=== PATIENT | female | born 1945 | race Caucasian/White ===

== ENCOUNTER 2017-05-04 19:23 | Observation (INO) | payer MEDICARE, OTHER ==
[2017-05-04 20:12] LABS: #Eosinphils 0.1 thou/uL (0.0-0.7); #Lymphocytes 1.3 thou/uL (1.20-3.40); #Monocytes 0.7 thou/uL (0.11-0.59); #Neutrophils 2.8 thou/uL (1.40-6.50); %Basophils 0.9 % (0.0-1.0); %Eosinophils 2.9 % (0.0-10.0); %Lymphocytes 26.5 % (21.0-51.0); %Monocytes 13.2 % (0.0-10.0); Hematocrit 39.2 % (36.0-47.0); Mean Platelet Volume 6.1 fL (7.4-10.4); Red Blood Cell (RBC) Count 4.17 mill/uL (4.20-5.40); White Blood Cell (WBC) Count 4.9 thou/uL (4.8-10.8)
[2017-05-04 20:37] LABS: Troponin I Less than 0.010 ng/mL (< 0.028)
[2017-05-04 20:42] LABS: ALT (SGPT) 43 U/L (8-55); AST (SGOT) 47 U/L (5-34); Alkaline Phosphatase 56 U/L (40-150); Anion Gap 17 mmol/L (10-20); BUN (Urea Nitrogen) 13 mg/dL (9.8-20.1); Bilirubin, Total 0.6 mg/dL (0.2-1.2); Calc. Creatinine Clearance 0 mL/min (70-130); Calcium 9.8 mg/dL (7.8-10.44); Carbon Dioxide 22 mmol/L (23-31); Chloride 104 mmol/L (98-107); Estimated GFR-MDRD 73; Globulin 2.6 g/dL (2.4-3.5); Protein, Total 7.1 g/dL (6.0-8.3)
[2017-05-04] MEDS ORDERED: Labetalol HCl 100 MG/20 ML VIAL ONE (20:45)
--- NOTE | 2017-05-04 21:18 | PDOC.EVN ---
Event Note - Event Note Event Note: [id number] h&p dictated 1. Chest pain 2. HTN 3. IDALIA 4. H/O Depression & anxiety see orders
[2017-05-04 22:42] VITALS: BMI 27.8
[2017-05-04] MEDS: Nitroglycerin 2% Ointment 1 INCH/1 GM Packet TOP SCH (22:43)
[2017-05-04] MEDS ORDERED: Lorazepam 0.5 MG TAB PO SCH (23:15)
[2017-05-04 23:25] LABS: Troponin I Less than 0.010 ng/mL (< 0.028)
[2017-05-05] MEDS ORDERED: ADENOSINE 60 MG/20 ML VIAL ONE (00:50)
[2017-05-05] MEDS ORDERED: ISOVUE-370 76%-LOCM 1 ML ONE (01:29)
[2017-05-05 02:41] LABS: Troponin I 0.012 ng/mL (< 0.028)
[2017-05-05] MEDS: Nitroglycerin 2% Ointment 1 INCH/1 GM Packet TOP SCH ×2 (04:02→15:00)
--- NOTE | 2017-05-05 07:13 | HP ---
DATE OF ADMISSION: 05/04/2017 CHIEF COMPLAINT: Chest pain. HISTORY OF PRESENT ILLNESS: The patient is a 72-year-old female with past medical history of hypertension, hyperlipidemia, obstructive sleep apnea, anxiety, and depression. Now came to the ER because of the chest pain. Chest pain started all of sudden, substernal pressure kind of pain. No aggravating factors, no relieving factors radiated from the central chest to the neck and to the epigastric region. Pain initially started on Sunday since that lasted for a few minutes then symptoms persisted on Sunday and lasted for a few minutes, today the pain persisted the whole day associated with some dizziness also. Denies any nausea, denies any vomiting, denies any fever, denies any chills. The patient complaint of jaw pain a couple of weeks back also lasted for a couple of weeks. Denies any cough. Denies sputum production. PAST MEDICAL HISTORY: As per HPI. PAST SURGICAL HISTORY: Cholecystectomy, hysterectomy, carpal tunnel surgery, and bunionectomy. SOCIAL HISTORY: Denies smoking. Occasional alcohol. Denies any drugs. FAMILY HISTORY: Positive for heart problems. MEDICATIONS: Reviewed. REVIEW OF SYSTEMS: CONSTITUTIONAL: Denies any fever. Denies any chills. EYES: Denies any vision problems. EARS: No hearing loss. NECK: Denies any neck pain. CARDIOVASCULAR SYSTEM: Positive for chest pain. RESPIRATORY SYSTEM: Denies dyspnea. Denies cough or denies sputum production. GASTROINTESTINAL SYSTEM: Denies nausea or vomiting. GENITOURINARY: denies dysuria INTEGUMENTARY: Denies any rash. All other review of systems are reviewed and are negative. PHYSICAL EXAMINATION: CONSTITUTIONAL/VITAL SIGNS: At the time of H\T\P performed, blood pressure is 112/80-90, afebrile, respiratory rate 18, and pulse ox 97% on room air. GENERAL: This patient appears comfortable. HEENT: Pupils are equal, round, and reactive. Anterior naris patent. Nose normal. Ears normal. Teeth intact. Tongue is moist. NECK: Supple, no JVD. CARDIOVASCULAR SYSTEM: S1, S2 present. Regular rate and rhythm, no murmurs, no rubs, no gallops. RESPIRATORY SYSTEM: No wheezing, no rhonchi. Breath sounds present bilaterally. GASTROINTESTINAL: Abdomen is soft, nontender, no guarding, no organomegaly, no masses felt. MUSCULOSKELETAL: No edema. moves all joints INTEGUMENTARY: No rashes seen. PSYCHIATRIC: Mood is appropriate at this time. GENITOURINARY: No suprapubic tenderness. LABORATORY DATA: Labs done in the outside ER show positive, troponin was less than 0.010. White count 4.8, hemoglobin 12.8, platelet count 271, BUN 17, creatinine 0.8. D-dimer 1.23. IMAGING DATA: EKG, ST depression seen in V4, V5 and T-wave inversions seen in lead 2. ASSESSMENT AND PLAN: The patient is 72-year-old female. 1. Chest pain. The patient has elevated D-dimer per ED physician. Outside CT angio is negative for pulmonary embolism. We will wait for the CTA report. We will go ahead and check cardiac enzymes. We will consult Cardiology to evaluate the patient. We will place patient on telemetry. 2. Hypertension, uncontrolled. We will continue home treatments. We will do p.r.n. hydralazine and clonidine also. 3. History of hyperlipidemia. Continue statin. 4. History of obstructive sleep apnea, monitor respiratory status closely. 5. History of anxiety. P.r.n. anxiolytics. Case was discussed in detail with the patient. The patient is FULL CODE. MTDD
[2017-05-05] MEDS ORDERED: Carvedilol 6.25 MG TAB PO SCH (09:00)
[2017-05-05] MEDS ORDERED: Bupropion 150 MG XL TAB PO SCH (09:00)
[2017-05-05] MEDS ORDERED: Non-Formulary Item 1 EACH (Valsartan/Hydrochlorothiazide [Valsartan-Hctz 320-25 Mg Tab] 1 PO SCH (09:00)
[2017-05-05] MEDS ORDERED: DEXLANSOPRAZOLE 30 MG PO SCH (09:00)
[2017-05-05] MEDS: Clopidogrel Bisulfate 75 MG TAB PO SCH ×2 (09:57→16:11)
[2017-05-05] MEDS: Hydrochlorothiazide 25 MG TAB PO SCH ×2 (09:57→16:11)
[2017-05-05] MEDS: Aspirin 325 MG TAB PO SCH ×2 (09:57→16:10)
[2017-05-05] MEDS: Labetalol HCl 100 MG TAB PO SCH ×2 (09:57→18:28)
[2017-05-05] MEDS: Fenofibrate Nanocrystallized 145 MG TAB PO SCH ×2 (09:57→16:11)
[2017-05-05] MEDS: Valsartan 80 MG TAB PO SCH ×2 (09:58→16:09)
[2017-05-05] MEDS: Meloxicam 15 MG TAB PO SCH ×2 (09:58→16:11)
--- NOTE | 2017-05-05 15:56 | NM ---
HISTORY: Chest pain. History of hypertension, dyslipidemia. MYOCARDIAL PERFUSION AND QUANTITATIVE GATED SPECT STUDY. 05/05/17 DOSE: 27 millicuries of technetium 99m Cardiolite for the stress portion of the exam and 9.4 millicuries f or the resting portion of the exam. The patient was stressed using 37 mg of Adenosine. Images demonstrate no significant evidence of reversible defects seen on the stress and resting imag es. No evidence of myocardial ischemia or scar seen. No definite evidence of reversible defects seen . Ejection fraction measures 67%. IMPRESSION: No definite significant evidence of myocardial ischemia. POS: BAILEY
[2017-05-05 16:01] VITALS: TEMP 98.3
--- NOTE | 2017-05-05 17:32 | CT ---
CTA OF THE THORAX WITH IV CONTRAST PE PROTOCOL AND ED REFORMAT IMAGING 05/05/17 INDICATION: Chest pain with history of hypertension and dyslipidemia. FINDINGS: No central or segmental pulmonary embolus is evident. There are moderate calcifications involving the coronary arteries and thoracic aorta. No enlarged lymph nodes are evident. There is some areas of subsegmental volume loss within the right lung base which are nonspecific. No air space consolidation, pleural effusion or pneumothorax is evident. There is a small cyst within the medial left hepatic lobe measuring 1 cm. The gallbladder is surgica lly absent. There is a 2 cm cyst involving the superior pole of the left kidney. No acute osseous abnormality is evident. IMPRESSION: 1. No central or segmental pulmonary embolus. 2. Left hepatic lobe cyst and left renal cyst. POS: BAILEY
--- NOTE | 2017-05-05 17:52 | CON ---
DATE OF CONSULTATION: 05/05/2017 REASON FOR CONSULTATION: Chest pain. HISTORY OF PRESENT ILLNESS: Ms. Faria is a pleasant 72-year-old white female who comes to the hosp [facility] for chest pain. She states that it all started 4 days ago. She was just sitting and felt a li ttle tightness in the mid sternal area. She felt like somebody was grabbing her from the inside, la st for about an hour and then went away on its own. She never had it until 2 days later where she f elt she was at a bible study, just sitting down and felt the same sensation. She decided to come in for evaluation. She has not had any chest pain since. She was admitted, ruled out and Cardiology is being consulted for this. PAST MEDICAL HISTORY: 1. Hypertension. 2. Hyperlipidemia. 3. Sleep apnea. 4. Anxiety and depression. She had a negative heart catheterization in 1979 after she had a panic attack. This is nothing like she was feeling the past week. PAST SURGICAL HISTORY: 1. Cholecystectomy. 2. Hysterectomy. 3. Carpal tunnel surgery. 4. Bunionectomy. SOCIAL HISTORY: No alcohol, tobacco, or drugs. She does drink alcohol occasionally. FAMILY HISTORY: Early coronary artery disease in father. OUTPATIENT MEDICATIONS: 1. Bupropion 150 mg p.o. b.i.d. 2. Plavix 75 mg a day. 3. Amlodipine 5 mg q.a.m. 4. Valsartan and hydrochlorothiazide 320/25 a day. 5. Mobic. 6. Labetalol 200 mg p.o. b.i.d. 7. Lorazepam p.r.n. 8. TriCor 145 mg q.a.m. 9. Famciclovir. 10. Doxycycline. 11. Dexilant 30 mg q.a.m. ALLERGIES: SULFA DRUGS. REVIEW OF SYSTEMS: A twelve-point review of systems was done, it is all negative unless stated in t he history of present illness. PHYSICAL EXAMINATION: VITAL SIGNS: Temperature 98.6, pulse 55, respiration rate 18, satting 99% on room, blood pressure 1 55/70. GENERAL: Awake, alert, oriented x3, in no distress. HEENT: Normocephalic, atraumatic. NECK: Supple. LUNGS: Clear. CARDIOVASCULAR: S1, S2. No S3 or S4. No murmurs or rubs. ABDOMEN: Soft, positive bowel sounds. EXTREMITIES: No edema. SKIN: Warm and dry. LABORATORY WORK: Reviewed. CBC is unremarkable. Chemistry is unremarkable. Troponin is negative x3. Triglycerides of 136, total cholesterol of 170, LDL of 101, HDL 42. IMAGING: EKG was reviewed, normal sinus rhythm with no ischemic changes. ASSESSMENT AND PLAN: Chest pain: Atypical for angina. We will further risk stratify with nuclear stress test. Pending on these results, we will decide on, she may be discharged home if her stress test is normal. Otherwise, we will decide on further risk stratification if there is any suggestion of ischemia. Thank you for letting us to participate in the care of your patient. Once the patient is discharged if the stress test is normal, she will follow up with us in 2-4 weeks.
--- NOTE | 2017-05-05 18:21 | DIS ---
DATE OF ADMISSION: 05/04/2017 DATE OF DISCHARGE: 05/05/2017 PRIMARY CARE PHYSICIAN: Hira Alford M.D. DISCHARGE DIAGNOSIS: Chest pain, resolved. CONDITION OF PATIENT AT THE TIME OF DISCHARGE: Stable. I assessed Ms. Faria on the day of dischar . She denies any chest pain or shortness of breath. Vital signs are stable. S1 and S2 are heard , regular. Lungs are clear to auscultation bilaterally. DISCHARGE MEDICATIONS: Amlodipine 5 mg daily, bupropion XL 150 mg 2 times a day, Plavix 75 mg daily , Dexilant 30 mg daily, doxycycline 40 mg daily, famciclovir 500 mg daily, TriCor 145 mg daily, valerie zepam 0.5 mg at bedtime as needed, labetalol 200 mg 2 times a day, meloxicam 15 mg daily, and valsar hitchcock/hydrochlorothiazide 320/25 mg daily. HOSPITAL COURSE: Ms. Faria is a pleasant 72-year-old lady, who was admitted at [facility] on 05/05/2017 for chest pain. She had a 2D echocardiogram, which showed ejection fra ction estimated at 60% to 65%, grade I/III diastolic dysfunction, mild LVH, moderate mitral regurgit ation, mild aortic regurgitation, mild tricuspid regurgitation, and mitral annular calcification. S he also had a nuclear stress test, which did not reveal any significant evidence of myocardial ische ashlee. She had an elevated D-dimer. She underwent CT angiogram of the chest, which did not reveal an y central or segmental pulmonary embolus. She has a left hepatic lobe cyst and left renal cyst. During this admission, she had a creatinine of 0.78, normal troponins, triglycerides 136, cholestero l 170, LDL cholesterol 101, and HDL cholesterol 42. White count was 4,900, hemoglobin 13.3, and maikel telet count 299,000. Many thanks for allowing me to participate in your patient's care. Please feel free to contact me w ith any questions or concerns. She is advised to follow up with her primary care physician's office in 3-5 days. DISCHARGE DESTINATION: Home.
[2017-05-05 20:25] VITALS: BP 152/76
[2017-05-05] MEDS ORDERED: Lorazepam 0.5 MG TAB PO SCH (21:00)
--- NOTE | 2017-05-11 13:45 | STRESS ---
Acquisition Time: 2017-05-05 11:41:33 Total Exercise Time: 00:04:00 Test Indications: CHEST PAIN Medications: Protocol: ADENOSINE Max HR: 089 BPM 59% of Pred: 150 BPM Max BP: 176/082 mmHG Max Work Load: 1.0 METS RESTING ECG: NORMAL SINUS RHYTHM AT 61 BPM SYMPTOMS: CHEST PAIN, SHORTNESS OF BREATH NORMAL BP RESPONSE ECTOPY: NONE ECG STRESS: 1MM DOWNSLOPING ST DEPRESSION INTERPRETATION: INDETERMINATE ECG/AWAIT NUCLEAR IMAGES FOR DEFINITIVE DIAGNOSIS Confirmed by AJ BOX M.D. ([id number]) on 05/11/2017 1:44:57 PM Referred By: MD Owen HERRON Confirmed By:AJ BOX M.D.
== END 2017-05-05 20:36 | disposition home or self-care (01) ==
LOC: ERS 19:23 → 2SW 20:35
PROVIDERS: ADMIT Internal Medicine; ATTEND Internal Medicine
DX: R07.89 Other chest pain (principal); I10 Essential (primary) hypertension; E78.5 Hyperlipidemia, unspecified; G47.33 Obstructive sleep apnea (adult) (pediatric); F41.9 Anxiety disorder, unspecified; F32.9 Major depressive disorder, single episode, unspecified; Z88.2 Allergy status to sulfonamides; Z79.899 Other long term (current) drug therapy; Z90.49 Acquired absence of other specified parts of digestive tract; Z90.710 Acquired absence of both cervix and uterus; Z98.890 Other specified postprocedural states; Z87.891 Personal history of nicotine dependence
CPT/HCPCS: 71275; 78452; 80053; 80061; 82553; 84484 ×3; 85025; 85379; 93005; 93017; 93306; 94760; 96374; 99285; A9500; G0378; 36415; J0153

== ENCOUNTER 2017-08-29 06:02 | Inpatient (IN) | payer MEDICARE, OTHER ==
[2017-08-29] MEDS ORDERED: CEFAZOLIN/Water 2 GM/20 ML SYRINGE ONE (06:23)
[2017-08-29] MEDS ORDERED: Heparin 10,000 UNITS/1 ML VIAL 30,000 UNITS in Sodium Chloride 0.9% 1,000 ML FS SCH (06:45)
[2017-08-29 06:51] LABS: #Basophils 0.1 thou/uL (0.0-0.2); #Eosinphils 0.3 thou/uL (0.0-0.7); #Lymphocytes 1.5 thou/uL (1.20-3.40); #Monocytes 0.6 thou/uL (0.11-0.59); #Neutrophils 2.5 thou/uL (1.40-6.50); %Basophils 1.3 % (0.0-1.0); %Eosinophils 5.9 % (0.0-10.0); %Lymphocytes 30.6 % (21.0-51.0); %Monocytes 12.7 % (0.0-10.0); %Neutrophils 49.5 % (42.0-75.0); Hemoglobin 12.4 g/dL (12.0-16.0); Mean Corpuscular HGB CONC 33.8 g/dL (32.0-36.0); Mean Corpuscular Hemoglobin 30.8 pg (27.0-31.0); Mean Platelet Volume 6.5 fL (7.4-10.4); Platelet Count 249 thou/uL (130-400); RBC Distribution Width 12.1 % (11.5-14.5); Red Blood Cell (RBC) Count 4.02 mill/uL (4.20-5.40)
[2017-08-29] MEDS ORDERED: Fentanyl 100 MCG/2 ML VIAL ONE (06:51)
[2017-08-29] MEDS ORDERED: Midazolam HCl 5 mg/5 ml Vial ONE (06:51)
[2017-08-29] MEDS ORDERED: Vecuronium 10 MG VIAL ONE ×2 (06:52→15:03)
[2017-08-29] MEDS ORDERED: Dexmedetomidine 200 MCG/2 ML VIAL ONE (06:52)
[2017-08-29] MEDS ORDERED: Midazolam HCl 2 mg/2 ml Vial ONE ×2 (07:00)
[2017-08-29 07:07] LABS: Anion Gap 14 mmol/L (10-20); BUN (Urea Nitrogen) 19 mg/dL (9.8-20.1); Calc. Creatinine Clearance 58 mL/min (70-130); Calcium 10.1 mg/dL (7.8-10.44); Carbon Dioxide 25 mmol/L (23-31); Chloride 103 mmol/L (98-107); Estimated GFR-MDRD 55; Glucose 120 mg/dL (80-115); Potassium 3.9 mmol/L (3.5-5.1); Sodium 138 mmol/L (136-145)
[2017-08-29] MEDS ORDERED: Albumin 5% 500 ML ONE (08:26)
[2017-08-29] MEDS ORDERED: Insulin Regular 300 UNITS/3 ML VIAL ONE (10:24)
[2017-08-29] MEDS ORDERED: Norepinephrine 8 MG/0.9% NS 250 ML IVPB PRN (11:10)
[2017-08-29] MEDS ORDERED: Post-Op Insulin Drip Protocol IVPB ONE (11:10)
[2017-08-29] MEDS ORDERED: Bisacodyl 5 MG TAB PO PRN (11:10)
[2017-08-29] MEDS ORDERED: Fentanyl 100 MCG/2 ML VIAL SLOW IVP PRN (11:10)
[2017-08-29] MEDS ORDERED: DOPamine 400 MG/D5W 250 ML 250 ML IVPB PRN (11:10)
[2017-08-29] MEDS ORDERED: Bisacodyl 10 MG SUPP PR PRN (11:10)
[2017-08-29] MEDS ORDERED: Mag-Al 1200 mg/1200 mg/30 ML UDCUP PO PRN (11:10)
[2017-08-29] MEDS ORDERED: Morphine 4 MG/ML VIAL SLOW IVP PRN (11:10)
[2017-08-29] MEDS ORDERED: hydrALAZINE 20 MG/ML VIAL SLOW IVP PRN (11:10)
[2017-08-29] MEDS ORDERED: HYDROcodone/Acetaminophen 5/325 mg Tablet PO PRN (11:10)
[2017-08-29] MEDS ORDERED: Guaifenesin DM 100-10/5 ML UDCUP PO PRN (11:10)
[2017-08-29] MEDS ORDERED: Promethazine HCl 25 MG/ML VIAL IM PRN (11:10)
[2017-08-29] MEDS ORDERED: Nitroglycerin 50 MG/250 ML BOT 250 ML IVPB PRN (11:10)
[2017-08-29] MEDS ORDERED: Phenylephrine 10 MG/NS 250 ML 250 ML IVPB PRN (11:10)
[2017-08-29] MEDS ORDERED: Acetaminophen 325 MG TAB PO PRN (11:10)
[2017-08-29] MEDS ORDERED: Hetastarch 6% 500 ML 500 ML IVPB PRN (11:10)
[2017-08-29] MEDS ORDERED: Dextrose 5% in Water 1,000 ML IV PRN (11:34)
[2017-08-29] MEDS ORDERED: Dextrose 50% Abboject 50 ML SYRINGE SLOW IVP PRN (11:34)
[2017-08-29 11:43] LABS: #Eosinphils 0.2 thou/uL (0.0-0.7); #Lymphocytes 1.4 thou/uL (1.20-3.40); #Monocytes 0.9 thou/uL (0.11-0.59); #Neutrophils 6.5 thou/uL (1.40-6.50); %Basophils 0.4 % (0.0-1.0); %Eosinophils 2.2 % (0.0-10.0); %Monocytes 9.9 % (0.0-10.0); %Neutrophils 72.5 % (42.0-75.0); Mean Corpuscular HGB CONC 35.1 g/dL (32.0-36.0); Mean Corpuscular Hemoglobin 32.3 pg (27.0-31.0); Mean Corpuscular Volume 92.2 fl (81.0-99.0); Platelet Count 222 thou/uL (130-400); RBC Distribution Width 12.1 % (11.5-14.5); Red Blood Cell (RBC) Count 3.41 mill/uL (4.20-5.40)
[2017-08-29 11:44] VITALS: BMI 29.5
[2017-08-29 12:03] LABS: INR-International Normal Ratio 1.4; PTT 32.4 SEC (22.9-36.1); Prothrombin Time 17.6 SEC (12.0-14.7)
[2017-08-29 12:07] LABS: Actual Bicarbonate (HCO3a) 21.6 mEq/L (22-26); Base Excess (BEa) -2.6 mEq/L (0 (+/-) 2.5); CO2 Tension 35.4 mmHg (35.0-45.0); Hematocrit-ABG 33.4 % (36.0-47.0); Hemoglobin (Hb) 11.2 g/dL (12.0-16.0); O2 Tension (PaO2) 80.5 mmHg (80.0-100.0)
[2017-08-29 12:08] LABS: Calcium, Ionized 1.1 mmol/L (1.12-1.30); Puncture Site ALINE
[2017-08-29 12:15] LABS: Anion Gap 13 mmol/L (10-20); BUN (Urea Nitrogen) 15 mg/dL (9.8-20.1); Calc. Creatinine Clearance 71 mL/min (70-130); Calcium 8.5 mg/dL (7.8-10.44); Carbon Dioxide 21 mmol/L (23-31); Chloride 110 mmol/L (98-107); Estimated GFR-MDRD 66; Glucose 109 mg/dL (80-115); Potassium 3.5 mmol/L (3.5-5.1); Sodium 140 mmol/L (136-145)
[2017-08-29] MEDS: Fentanyl 100 MCG/2 ML VIAL SLOW IVP PRN ×4 (13:15→19:49)
[2017-08-29] MEDS: CEFAZOLIN/Water 2 GM/20 ML SYRINGE SLOW IVP SCH ×2 (13:16→20:55)
[2017-08-29] MEDS: Sodium Chloride 0.9% 1,000 ML IV SCH ×2 (13:17→20:55)
[2017-08-29] MEDS: Potassium Chloride 20 MEQ/100 ML PREMIX BAG IVPB PRN ×2 (13:24→17:19)
--- NOTE | 2017-08-29 13:34 | OP ---
DATE OF PROCEDURE: 08/29/2017 PREOPERATIVE DIAGNOSIS: Coronary artery disease. PROCEDURES PERFORMED: Coronary bypass graft x3, left internal mammary artery to a 1.5 mm intramyocar dial left anterior descending, saphenous vein, small but good quality to a 2 mm obtuse marginal and a 2 mm diagonal. SURGEON: Facundo Bauman M.D. WATER/WASTEWATER ENGINEER: Cesar Huff M.D. TRANSFUSION: None. PROCEDURE IN DETAIL: After adequate anesthesia had been obtained, the patient was prepped and draped . Dr. Huff did an endovascular vein harvest of the left greater saphenous vein while I performed a median sternotomy. After opening the sternum, the left internal mammary artery that was harvested en tered the left pleura in one area. Following harvesting, the patient was heparinized, the mammary di vided distally and passed posterior to a small remnant of thymus gland. Aorta and right atrium were cannulated. Cardiopulmonary bypass instituted. Following this, a liter of D'Donna cardioplegic solu tion was given after inspection of the distal anastomosis. Following this, the OM and diagonal vein and coronary anastomoses were completed. The LAD was dissected out intramyocardial and the RUFF anas tomosed here. Some venous bleeders in the region of the anastomosis were suture ligated. Following completion of this, the crossclamp was removed, partial occluding clamp placed, and 2 proximal anasto carlos were performed on the aortic root marked with rings. The patient was then weaned from cardiopu lmonary bypass, cannulas were removed, and protamine was given systemically. Mediastinal and left pl eural drain were placed with incisions to the right of the upper abdominal midline incision that had been placed for previous cholecystectomy. Following this, sternum was reapproximated with #7 interru pted wire using vancomycin paste on the sternal edges, platelet-enriched blood, and platelet-poor maikel sma. Subcutaneous tissue and skin were closed in layers and the patient is to be taken to the ICU in guarded condition.
[2017-08-29] MEDS ORDERED: PROPOFOL 200 MG/20 ML VIAL ONE (15:03)
[2017-08-29] MEDS ORDERED: DOPamine 400 MG/10 ML VIAL ONE (15:03)
[2017-08-29] MEDS ORDERED: Papaverine 60 MG/2 ML VIAL ONE (15:03)
[2017-08-29] MEDS ORDERED: Nitroglycerin 50 MG/250 ML BOT ONE (15:03)
[2017-08-29] MEDS ORDERED: Calcium Chloride 1 GM/10 ML Abboject SYRINGE ONE (15:03)
[2017-08-29] MEDS ORDERED: Lidocaine 1% PF 5 ML VIAL ONE (15:03)
[2017-08-29] MEDS ORDERED: Sodium Bicarb 50 MEQ/50 ML Abboject 8.4% SYRINGE ONE (15:03)
[2017-08-29] MEDS ORDERED: Heparin 30,000 units/30 ml VIAL ONE (15:03)
[2017-08-29] MEDS ORDERED: Heparin 5,000 UNITS/ML VIAL ONE (15:03)
[2017-08-29] MEDS ORDERED: Aminocaproic Acid 5 GM/20 ML VIAL ONE (15:03)
[2017-08-29] MEDS ORDERED: Potassium Chloride 60 MEQ/30 ML VIAL ONE (15:03)
[2017-08-29] MEDS ORDERED: Cardioplegic Soln 1,000 ML BAG ONE (15:03)
[2017-08-29] MEDS ORDERED: Magnesium 5 GM/10 ML VIAL ONE (15:03)
[2017-08-29] MEDS ORDERED: Thrombin 5000 UNITS/5 ML VIAL ONE (15:03)
[2017-08-29] MEDS ORDERED: Protamine Sulfate 250 MG/25 ML VIAL ONE (15:03)
[2017-08-29] MEDS ORDERED: Lidocaine 2% PF 100 mg/5 ml Syringe ONE (15:03)
[2017-08-29] MEDS: Insulin Regular 300 UNITS/3 ML VIAL SC PRN ×2 (15:52→19:46)
[2017-08-29 16:08] LABS: Base Excess (BEa) -2.7 mEq/L (0 (+/-) 2.5); CO2 Tension 43.6 mmHg (35.0-45.0); Calcium, Ionized 1.1 mmol/L (1.12-1.30); Hematocrit-ABG 33.4 % (36.0-47.0); Hemoglobin (Hb) 10.5 g/dL (12.0-16.0); Puncture Site ALINE; pH, Arterial 7.34 (7.35-7.45)
--- NOTE | 2017-08-29 16:39 | RAD ---
CHEST ONE VIEW 08/29/17 HISTORY: Post open heart surgery. COMPARISON: None. FINDINGS: Patient intubated. Endotracheal tube tip above the sukhdeep approximately 2 cm. Central venous catheter tip in the right atrium. Patient is leftwardly rotated. Thoracostomy tube on the left is in place. N o significant pneumothorax. Pericardial drains are present. Mild atelectatic changes in the lung base on the left. IMPRESSION: Expected postoperative findings without complication. POS: BAILEY
[2017-08-29 17:02] LABS: Hemoglobin 10.9 g/dL (12.0-16.0)
[2017-08-29 17:11] LABS: Potassium 3.7 mmol/L (3.5-5.1)
[2017-08-29] MEDS: Famotidine/PF 20 mg/2ml Vial SLOW IVP SCH (19:49)
[2017-08-29] MEDS: Ondansetron HCl/PF 4 MG/2 ML Vial IVP PRN (19:49)
[2017-08-29] MEDS: clonazePAM 0.5 MG TAB PO SCH (19:57)
[2017-08-29] MEDS: Bupropion 150 MG SR TAB PO SCH (19:57)
[2017-08-29] MEDS: HYDROcodone/Acetaminophen 5/325 mg Tablet PO PRN (20:52)
[2017-08-30] MEDS: HYDROcodone/Acetaminophen 5/325 mg Tablet PO PRN ×5 (00:14→21:11)
[2017-08-30] MEDS: Insulin Regular 300 UNITS/3 ML VIAL SC PRN ×3 (00:26→09:12)
--- NOTE | 2017-08-30 00:53 | EKG ---
Test Reason : POST CABG Blood Pressure : / mmHG Vent. Rate : 055 BPM Atrial Rate : 055 BPM P-R Int : 186 ms QRS Dur : 096 ms QT Int : 480 ms P-R-T Axes : 014 019 -50 degrees QTc Int : 459 ms Sinus bradycardia T wave abnormality, consider anterior ischemia Abnormal ECG When compared with ECG of 04-MAY-2017 19:28, T wave inversion now evident in Inferior leads T wave inversion now evident in Anterior leads Nonspecific T wave abnormality no longer evident in Lateral leads Confirmed by NAN RUFF, SShayne ([id number]) on 08/30/2017 12:53:21 AM Referred By: PIPER Confirmed By:DR. Mary MONTANA MD
[2017-08-30] MEDS: Fentanyl 100 MCG/2 ML VIAL SLOW IVP PRN ×3 (01:42→10:06)
[2017-08-30 04:29] LABS: #Monocytes 1.1 thou/uL (0.11-0.59); #Neutrophils 7.4 thou/uL (1.40-6.50); %Basophils 0.1 % (0.0-1.0); %Eosinophils 0.3 % (0.0-10.0); %Lymphocytes 10.9 % (21.0-51.0); %Monocytes 11.2 % (0.0-10.0); %Neutrophils 77.6 % (42.0-75.0); Hemoglobin 10.1 g/dL (12.0-16.0); Mean Corpuscular HGB CONC 33.2 g/dL (32.0-36.0); Mean Corpuscular Hemoglobin 30.8 pg (27.0-31.0); Mean Corpuscular Volume 92.7 fl (81.0-99.0); Mean Platelet Volume 6.3 fL (7.4-10.4); Platelet Count 228 thou/uL (130-400); RBC Distribution Width 12.3 % (11.5-14.5); Red Blood Cell (RBC) Count 3.27 mill/uL (4.20-5.40); White Blood Cell (WBC) Count 9.5 thou/uL (4.8-10.8)
[2017-08-30 04:50] LABS: Anion Gap 12 mmol/L (10-20); BUN (Urea Nitrogen) 15 mg/dL (9.8-20.1); Calc. Creatinine Clearance 76 mL/min (70-130); Calcium 7.9 mg/dL (7.8-10.44); Carbon Dioxide 26 mmol/L (23-31); Chloride 106 mmol/L (98-107); Estimated GFR-MDRD 71; Glucose 151 mg/dL (80-115); Potassium 3.7 mmol/L (3.5-5.1); Sodium 140 mmol/L (136-145)
[2017-08-30] MEDS: CEFAZOLIN/Water 2 GM/20 ML SYRINGE SLOW IVP SCH (05:05)
[2017-08-30] MEDS: Ondansetron HCl/PF 4 MG/2 ML Vial IVP PRN (05:30)
[2017-08-30] MEDS: Potassium Chloride 20 MEQ/100 ML PREMIX BAG IVPB PRN (06:01)
[2017-08-30] MEDS: Sodium Chloride 0.9% 1,000 ML IV SCH (07:23)
--- NOTE | 2017-08-30 08:47 | RAD ---
CHEST 1 VIEW PORTABLE: Date: 08/30/17 HISTORY: 72-year-old female status post recent open heart surgery. COMPARISON: 08/29/17. FINDINGS: Endotracheal tube has been removed. Chest tubes and right subclavian catheter remains in place. Recen t postop midline sternotomy with some increased markings in the infrahilar regions and some blunting of the costophrenic angles consistent with typical postoperative change and probably some mild subseg mental atelectasis. No evidence for new confluent process or pneumothorax. IMPRESSION: Stable postoperative changes. Continue short-term follow-up. POS: OFF
[2017-08-30] MEDS ORDERED: Aspirin 325 MG TAB PO SCH (09:00)
[2017-08-30] MEDS ORDERED: Prevnar 13-Val Conj/PF 0.5 ML SYRINGE IM ONE (09:00)
[2017-08-30] MEDS: clonazePAM 0.5 MG TAB PO SCH ×2 (09:09→21:13)
[2017-08-30] MEDS: Fenofibrate Nanocrystallized 145 MG TAB PO SCH (09:09)
[2017-08-30] MEDS: Famotidine/PF 20 mg/2ml Vial SLOW IVP SCH (09:09)
[2017-08-30] MEDS: Bupropion 150 MG SR TAB PO SCH ×2 (09:10→21:13)
[2017-08-30] MEDS: Citalopram 10 MG TAB PO SCH (09:10)
[2017-08-30 10:52] LABS: Actual Bicarbonate (HCO3a) 21.9 mEq/L (22-26); Base Excess (BEa) -2.3 mEq/L (0 (+/-) 2.5); CO2 Tension 35.8 mmHg (35.0-45.0); Hematocrit-ABG 33.5 % (36.0-47.0); Hemoglobin (Hb) 11.3 g/dL (12.0-16.0); O2 Tension (PaO2) 220.4 mmHg (80.0-100.0); pH, Arterial 7.41 (7.35-7.45)
[2017-08-30 10:53] LABS: Analyzer IN Cardio OR; Calcium, Ionized 1.1 mmol/L (1.12-1.30); Puncture Site ALINE
[2017-08-30 10:54] LABS: Actual Bicarbonate (HCO3a) 22.5 mEq/L (22-26); Base Excess (BEa) -1.7 mEq/L (0 (+/-) 2.5); Hematocrit-ABG 33.2 % (36.0-47.0); Hemoglobin (Hb) 11.2 g/dL (12.0-16.0); O2 Tension (PaO2) 298.3 mmHg (80.0-100.0); pH, Arterial 7.41 (7.35-7.45)
[2017-08-30 10:55] LABS: Analyzer IN Cardio OR; Calcium, Ionized 1.1 mmol/L (1.12-1.30); Puncture Site ALINE
[2017-08-30 10:58] LABS: Actual Bicarbonate (HCO3a) 25.7 mEq/L (22-26); Base Excess (BEa) 0.6 mEq/L (0 (+/-) 2.5); CO2 Tension 43.7 mmHg (35.0-45.0); Hematocrit-ABG 21.5 % (36.0-47.0); Hemoglobin (Hb) 7.4 g/dL (12.0-16.0); O2 Tension (PaO2) 386.5 mmHg (80.0-100.0); pH, Arterial 7.39 (7.35-7.45)
[2017-08-30 10:59] LABS: Actual Bicarbonate (HCO3v) 25 mEq/L (22-26); Analyzer IN Cardio OR; Base Excess -0.9 mEq/L (0 (+/- 2.5)); Hematocrit-VBG 20.2 % (35-47); pH (venous) 7.34 (7.35-7.45)
[2017-08-30 10:59] LABS: Analyzer IN Cardio OR; Calcium, Ionized 0.9 mmol/L (1.12-1.30); Puncture Site ALINE
[2017-08-30 11:00] LABS: Actual Bicarbonate (HCO3a) 24.3 mEq/L (22-26); Base Excess (BEa) -0.9 mEq/L (0 (+/-) 2.5); CO2 Tension 42.8 mmHg (35.0-45.0); O2 Tension (PaO2) 307.6 mmHg (80.0-100.0); pH, Arterial 7.37 (7.35-7.45)
[2017-08-30 11:00] LABS: Chloride (ABG LAB) 102 mmol/L (98-106); Hemoglobin (Hb) 6.8 g/dL (11.7-16.1); Potassium - ABG Lab 4.2 mmol/L (3.70-5.30); Sodium 138.1 mmol/L (133-146)
[2017-08-30 11:01] LABS: Analyzer IN Cardio OR; Hematocrit-ABG 21.4 % (36.0-47.0); Hemoglobin (Hb) 6.9 g/dL (12.0-16.0); Puncture Site ALINE
[2017-08-30 11:02] LABS: Actual Bicarbonate (HCO3a) 21.9 mEq/L (22-26); Analyzer IN Cardio OR; Base Excess (BEa) -2.7 mEq/L (0 (+/-) 2.5); CO2 Tension 36.6 mmHg (35.0-45.0); Calcium, Ionized 1.1 mmol/L (1.12-1.30); Hematocrit-ABG 21.3 % (36.0-47.0); Hemoglobin (Hb) 7.2 g/dL (12.0-16.0); O2 Tension (PaO2) 269.1 mmHg (80.0-100.0); Puncture Site ALINE
[2017-08-30] MEDS ORDERED: Bisacodyl 10 MG SUPP PR PRN (12:56)
[2017-08-30] MEDS ORDERED: Bisacodyl 5 MG TAB PO PRN (12:56)
[2017-08-30] MEDS ORDERED: HYDROcodone/Acetaminophen 5/325 mg Tablet PO PRN (12:56)
[2017-08-30] MEDS ORDERED: Guaifenesin DM 100-10/5 ML UDCUP PO PRN (12:56)
[2017-08-30] MEDS ORDERED: Acetaminophen 325 MG TAB PO PRN (12:56)
[2017-08-30] MEDS ORDERED: Nitroglycerin 0.4 MG TAB (25 Tab Bottle) SL PRN (12:56)
[2017-08-30] MEDS ORDERED: Milk Of Magnesia 30 ML UDCUP PO PRN (12:56)
[2017-08-30] MEDS ORDERED: Mineral Oil ENEMA PR PRN (12:56)
[2017-08-30] MEDS ORDERED: Fentanyl 100 MCG/2 ML VIAL SLOW IVP PRN ×2 (12:56)
[2017-08-30] MEDS ORDERED: diphenhydrAMINE 25 MG CAP PO PRN (12:56)
[2017-08-30] MEDS ORDERED: Mag-Al 1200 mg/1200 mg/30 ML UDCUP PO PRN (12:56)
[2017-08-30] MEDS ORDERED: Ondansetron HCl/PF 4 MG/2 ML Vial IVP PRN (12:56)
[2017-08-30] MEDS: Ketorolac Tromethamine 30 MG/ML VIAL IVP SCH ×2 (17:23→23:27)
--- NOTE | 2017-08-30 18:53 | CON ---
DATE OF CONSULTATION: 08/30/2017 REASON FOR CONSULTATION: Status post bypass. PRIMARY EMERGENCY PREPAREDNESS MANAGER: Tan Fernando M.D. HISTORY OF PRESENT ILLNESS: Mrs. Faria is a very pleasant 72-year-old white female, very well known to myself, who comes to the hospital for planned bypass. She was admitted back in April for chest pain. She had a stress that was normal. She continued to have episodes of chest pains, so I took her to the catheterization lab where she was found to have severe left main disease and a small left-sided system, large right coronary artery which was widely patent. She underwent coronary artery bypass grafting x3, performed by Dr. Bauman yesterday. She had a RUFF to the LAD, saphenous vein to an obtuse marginal, and a saphenous vein to a 2 mm diagonal. She did well postoperatively. Actually was extubated rather quickly yesterday and she is already on the floor. She still has chest tubes in place. She has soreness around her site, but her breathing is getting better every day. She feels she is a little better every day. PAST MEDICAL HISTORY: 1. Hypertension. 2. Hyperlipidemia. 3. Sleep apnea. 4. Anxiety depression. 5. CAD as above. PAST SURGICAL HISTORY: 1. Cholecystectomy. 2. Hysterectomy. 3. Carpal tunnel surgery. 4. Bunionectomy. 5. Heart catheterization as above. 6. CABG x3 as above. SOCIAL HISTORY: No alcohol, tobacco or drugs. FAMILY HISTORY: Early coronary disease in father. OUTPATIENT MEDICATIONS: Include, 1. Valsartan/hydrochlorothiazide 320/25 mg a day. 2. Lorazepam p.r.n. 3. Ranitidine. 4. Meloxicam. 5. Fenofibrate 145 mg q.a.m. 6. Labetalol 200 mg p.o. b.i.d. 7. Famciclovir 500 mg p.o. q.a.m. 8. Clonazepam p.r.n. 9. Doxycycline. 10. Dexilant 30 mg q.a.m. 11. Clonidine 0.1 mg p.o. t.i.d. p.r.n. 12. Plavix 75 mg a day. 13. Celexa daily. 14. Bupropion. 15. Amlodipine 10 mg a day. ALLERGIES: SULFA DRUGS AND TRAMADOL. The patient has had adverse reactions to STATIN DRUGS. She has had a lot of myalgias and muscle cramps with SIMVASTATIN , LIPITOR, CRESTOR, AND MORE RECENTLY WITH LIVALO. REVIEW OF SYSTEMS: A 12-point review of systems was done and is all negative unless stated in the history of present illness. PHYSICAL EXAMINATION: VITAL SIGNS: Temperature 98.0, pulse 74, respiration rate 18, satting 92% on 4 liters, blood pressure 135/76. GENERAL: Awake, alert, oriented x3, in no distress. HEENT: Normocephalic, atraumatic. NECK: Supple. LUNGS: Have referred sounds from the chest is most likely. CARDIOVASCULAR: S1, S2. There is a 3 component rub, faint difficult to hear and to differentiate from all the chest tube sounds. ABDOMEN: Soft, positive bowel sounds. EXTREMITIES: 1+ edema bilaterally. SKIN: Warm and dry. LABORATORY WORK: Reviewed. White count of 9.5, hemoglobin 10.1, hematocrit 30 , platelet count 228. Coags were unremarkable. ABG was reviewed. Chemistries were reviewed. Sodium 140, potassium 3.7, BUN 15, creatinine 1.8, GFR 71, calcium 7.9. ASSESSMENT AND PLAN: 1. Coronary artery disease. 2. Status post coronary bypass grafting x3. 3. Hypertension. 4. Anxiety. PLAN: 1. Continue postoperative care. 2. Aspirin for life. She is intolerant to STATINS. She will need to be on Repatha once discharged from the hospital. We will start this as an outpatient. Continue to fenofibrate. 3. We will add ARB, she is already on low-dose beta shelia once her blood pressure allows. 4. We will hold Plavix for now indefinitely. Thank you for letting us to participate in the care of your patient. We will follow. GINGER
[2017-08-30] MEDS ORDERED: Simvastatin 40 MG TAB PO SCH (21:00)
[2017-08-30] MEDS ORDERED: Metoprolol Tartrate 25 MG TAB PO SCH (21:00)
[2017-08-31] MEDS: HYDROcodone/Acetaminophen 5/325 mg Tablet PO PRN ×2 (04:21→20:36)
[2017-08-31] MEDS: Ketorolac Tromethamine 30 MG/ML VIAL IVP SCH ×3 (05:38→18:00)
[2017-08-31] MEDS: Fenofibrate Nanocrystallized 145 MG TAB PO SCH (09:32)
[2017-08-31] MEDS: clonazePAM 0.5 MG TAB PO SCH ×2 (09:32→20:32)
[2017-08-31] MEDS: Aspirin 325 mg Enteric Coated Tablet PO SCH (09:32)
[2017-08-31] MEDS: Potassium Chloride 10 MEQ TAB PO SCH (09:32)
[2017-08-31] MEDS: Bupropion 150 MG SR TAB PO SCH ×2 (09:32→20:32)
[2017-08-31] MEDS: Furosemide 40 MG TAB PO SCH (09:32)
[2017-08-31] MEDS: Citalopram 10 MG TAB PO SCH (09:32)
[2017-08-31] MEDS: Metoprolol Tartrate 25 MG TAB PO SCH ×2 (09:32→20:32)
[2017-08-31] MEDS: Valsartan 80 MG TAB PO SCH (09:33)
--- NOTE | 2017-08-31 18:35 | PDOC.CTH ---
Cardiology Progress Note - Subjective She is doing well. She had her CT taken out today. She has walked around the hallways without issues. Has not had a BM yet. - Objective Vital Signs Temp Pulse Pulse Pulse Resp BP BP 08/31/17 16:29 97.5 F L 74 20 08/31/17 12:57 97.4 F L 68 18 08/31/17 12:17 70 75 145/68 H 140/68 08/31/17 08:45 66 68 148/72 H 160/72 H 08/31/17 08:25 98.2 F 75 20 08/31/17 08:14 98.2 F 75 20 BP Pulse Ox Pulse Ox Pulse Ox 08/31/17 16:29 160/79 H 81 L 08/31/17 12:57 159/74 H 95 08/31/17 12:17 93 L 93 L 08/31/17 08:45 94 L 93 L 08/31/17 08:25 90 L 08/31/17 08:14 90 L Weight 155 lb 14.4 oz 08/30/17 08/31/17 09/01/17 06:59 06:59 06:59 Intake Total 2334 740 1240 Output Total 3420 900 600 Balance -1086 -160 640 - Physical Examination General/Neuro: alert & oriented x3, NAD Neck: no JVD present Lungs: unlabored respirations Heart: RRR Abdomen: NT/ND Extremities: + edema B (1+) - Telemetry Telemetry Rhythm: NSR - Labs Result Diagrams: 08/30/17 03:53 08/30/17 03:53 - Assessment/Plan 1. Multivesel CAD, s.p CABG 2. HTN PLAN: - Aspirin/statin for life - Continue BB, will add ARB as BP is a little high now. - Continue to increase PT as tolerated.
[2017-08-31] MEDS: Amlodipine 5 MG TAB PO SCH (20:32)
[2017-09-01] MEDS: Ketorolac Tromethamine 30 MG/ML VIAL IVP SCH ×4 (00:59→18:35)
[2017-09-01] MEDS: HYDROcodone/Acetaminophen 5/325 mg Tablet PO PRN ×2 (01:45→22:11)
[2017-09-01] MEDS ORDERED: cloNIDine 0.1 MG TAB PO PRN (09:28)
[2017-09-01] MEDS: Amlodipine 5 MG TAB PO SCH ×2 (09:48→20:31)
[2017-09-01] MEDS: Potassium Chloride 10 MEQ TAB PO SCH (09:48)
[2017-09-01] MEDS: Aspirin 325 mg Enteric Coated Tablet PO SCH (09:49)
[2017-09-01] MEDS: Bupropion 150 MG SR TAB PO SCH ×2 (09:49→20:31)
[2017-09-01] MEDS: clonazePAM 0.5 MG TAB PO SCH ×2 (09:49→20:31)
[2017-09-01] MEDS: Furosemide 40 MG TAB PO SCH (09:49)
[2017-09-01] MEDS: Citalopram 10 MG TAB PO SCH (09:49)
[2017-09-01] MEDS: Fenofibrate Nanocrystallized 145 MG TAB PO SCH (09:49)
[2017-09-01] MEDS: Metoprolol Tartrate 25 MG TAB PO SCH ×2 (09:49→20:31)
[2017-09-01] MEDS ORDERED: Valsartan 80 MG TAB PO SCH (10:00)
[2017-09-01] MEDS: Valsartan 80 MG TAB PO SCH ×2 (10:03→20:31)
--- NOTE | 2017-09-01 18:53 | PDOC.CTH ---
Cardiology Progress Note - Subjective She is doing better every day. She had a normal BM today. - Objective Vital Signs Temp Pulse Pulse Pulse Resp BP BP 09/01/17 17:07 98.8 F 77 18 09/01/17 11:55 70 68 145/71 H 137/67 09/01/17 11:16 97.5 F L 73 20 09/01/17 09:05 76 87 145/74 H 173/81 H 09/01/17 08:05 97.3 F L 81 18 09/01/17 08:02 97.3 F L 81 18 BP BP Pulse Ox Pulse Ox Pulse Ox 09/01/17 17:07 174/79 H 92 L 09/01/17 11:55 95 93 L 09/01/17 11:16 166/81 H 94 L 09/01/17 09:05 93 L 93 L 09/01/17 08:05 92 L 09/01/17 08:02 176/81 H 92 L Weight 155 lb 1.6 oz 08/31/17 09/01/17 09/02/17 06:59 06:59 06:59 Intake Total 740 1580 1240 Output Total 900 2200 1100 Balance -160 -620 140 - Physical Examination General/Neuro: alert & oriented x3, NAD Neck: no JVD present Lungs: CTA, unlabored respirations Heart: RRR Abdomen: NT/ND Extremities: + edema B (1+) - Telemetry Telemetry Rhythm: NSR - Labs Result Diagrams: 08/30/17 03:53 08/30/17 03:53 - Assessment/Plan 1. Multivesel CAD, s/p CABG 2. HTN PLAN: - Aspirin/statin for life - Continue BB, agree with up titration of ARB due to BP high. - Continue to increase PT as tolerated.
[2017-09-01] MEDS ORDERED: Sodium Chloride 0.9% 30 ML ONE (20:16)
[2017-09-02] MEDS: Amlodipine 5 MG TAB PO SCH ×2 (09:16→20:22)
[2017-09-02] MEDS: Potassium Chloride 10 MEQ TAB PO SCH (09:16)
[2017-09-02] MEDS: Citalopram 10 MG TAB PO SCH (09:17)
[2017-09-02] MEDS: Aspirin 325 mg Enteric Coated Tablet PO SCH (09:17)
[2017-09-02] MEDS: Bupropion 150 MG SR TAB PO SCH ×2 (09:17→20:22)
[2017-09-02] MEDS: clonazePAM 0.5 MG TAB PO SCH ×2 (09:18→20:22)
[2017-09-02] MEDS: Metoprolol Tartrate 25 MG TAB PO SCH ×2 (09:18→20:23)
[2017-09-02] MEDS: Furosemide 40 MG TAB PO SCH (09:18)
[2017-09-02] MEDS: Fenofibrate Nanocrystallized 145 MG TAB PO SCH (09:18)
[2017-09-02] MEDS: Valsartan 80 MG TAB PO SCH ×2 (09:20→20:22)
--- NOTE | 2017-09-02 18:59 | PDOC.CTH ---
Cardiology Progress Note - Subjective Walking around with PT and with her . Had normal BM. - Objective Vital Signs Temp Pulse Pulse Resp BP BP BP 09/02/17 12:02 75 170/80 H 153/72 H 09/02/17 12:00 98.5 F 74 22 H 153/72 H 09/02/17 08:51 76 161/81 H 178/78 H 09/02/17 08:00 98.5 F 77 20 161/81 H Pulse Ox Pulse Ox Pulse Ox 09/02/17 12:02 97 96 09/02/17 12:00 96 09/02/17 08:51 98 95 09/02/17 08:00 95 Weight 150 lb 12.8 oz 09/01/17 09/02/17 09/03/17 06:59 06:59 06:59 Intake Total 1580 1870 Output Total 2200 3100 Balance -620 -1230 - Physical Examination General/Neuro: alert & oriented x3, NAD Neck: no JVD present Lungs: unlabored respirations, other: (mild crackles. ) Heart: RRR Abdomen: NT/ND Extremities: + edema B (1+) - Telemetry Telemetry Rhythm: NSR - Labs Result Diagrams: 08/30/17 03:53 08/30/17 03:53 - Assessment/Plan 1. Multivesel CAD, s/p CABG 2. HTN PLAN: - Aspirin/statin for life - Continue BB - Will increase valsartan. - Continue to increase PT as tolerated. - Home soon. - Follow up in 1 month.
[2017-09-02] MEDS ORDERED: Sodium Chloride 0.9% 30 ML ONE (19:45)
[2017-09-03] MEDS ORDERED: Sodium Chloride 0.9% 10 ML ONE (08:13)
--- NOTE | 2017-09-03 08:50 | DIS ---
HOSPITAL COURSE: The patient was admitted for elective coronary artery bypass grafting. She underwe nt coronary artery bypass graft x3, RUFF to the LAD and saphenous vein grafts to OM and diagonal. He r postoperative course was uneventful and she will be discharged home on her admitting medicines exce pt for clonidine. She will also receive a 5-day course of Lasix 40 mg daily, potassium 10 mEq daily, and received a prescription for [place]. Discharge and follow up instructions were given.
[2017-09-03] MEDS: Amlodipine 5 MG TAB PO SCH (08:56)
[2017-09-03] MEDS: Potassium Chloride 10 MEQ TAB PO SCH (08:56)
[2017-09-03] MEDS: Aspirin 325 mg Enteric Coated Tablet PO SCH (08:57)
[2017-09-03] MEDS: Furosemide 40 MG TAB PO SCH (08:58)
[2017-09-03] MEDS: Bupropion 150 MG SR TAB PO SCH (08:58)
[2017-09-03] MEDS: Fenofibrate Nanocrystallized 145 MG TAB PO SCH (08:58)
[2017-09-03] MEDS: Citalopram 10 MG TAB PO SCH (08:58)
[2017-09-03] MEDS: Metoprolol Tartrate 25 MG TAB PO SCH (08:58)
[2017-09-03] MEDS: clonazePAM 0.5 MG TAB PO SCH (08:59)
[2017-09-03] MEDS: Valsartan 80 MG TAB PO SCH (08:59)
[2017-09-03 13:39] VITALS: BP 142/79
[2017-09-03 14:32] VITALS: TEMP 98.9
--- NOTE | 2017-09-03 15:16 | PDOC.CTH ---
Cardiology Progress Note - Subjective She is doing we. No new issues. Continues to do well with PT. - Objective Vital Signs Temp Pulse Pulse Pulse Resp BP BP 09/03/17 13:03 85 85 142/79 H 09/03/17 08:56 82 165/80 H 09/03/17 08:36 83 86 183/93 H 09/03/17 08:00 98.9 F 82 19 09/03/17 03:49 82 20 09/03/17 03:40 98.8 F 82 16 BP BP Pulse Ox Pulse Ox Pulse Ox 09/03/17 13:03 144/78 H 98 96 09/03/17 08:56 09/03/17 08:36 182/92 H 98 96 09/03/17 08:00 96 09/03/17 03:49 168/86 H 09/03/17 03:40 93 L Weight 142 lb 1.6 oz 09/02/17 09/03/17 09/04/17 06:59 06:59 06:59 Intake Total 1870 1980 Output Total 3100 3650 Balance -1230 -1670 - Physical Examination General/Neuro: alert & oriented x3, NAD Neck: no JVD present Lungs: unlabored respirations Heart: RRR Abdomen: NT/ND Extremities: + edema B (1+) - Telemetry Telemetry Rhythm: NSR - Labs Result Diagrams: 08/30/17 03:53 08/30/17 03:53 - Assessment/Plan 1. Multivesel CAD, s/p CABG 2. HTN 3. Intolerant to statins. PLAN: - Aspirin for life - Continue BB - Will increase valsartan. - Continue to increase PT as tolerated. - Home soon. - Follow up in 1 month. - Will start Repatha as outpatient on her next visit as she hobbs snot tolerated 3 different statins due to myalgias.
[2017-09-03] MEDS ORDERED: Metoprolol Tartrate 25 MG TAB PO SCH (21:00)
[2017-09-04] MEDS ORDERED: Valsartan 80 MG TAB PO SCH (09:00)
[2017-09-04] MEDS ORDERED: Amlodipine 10 MG TAB PO SCH (09:00)
== END 2017-09-03 16:45 | disposition home or self-care (01) | DRG 236 ==
LOC: SURG A 06:02 → CCU 11:03 → 2NO 08-30 15:51
PROVIDERS: ADMIT Thoracic Surgery (Cardiothoracic Vascular Surgery); ATTEND Thoracic Surgery (Cardiothoracic Vascular Surgery)
PROC: 02100Z9 Bypass Coronary Artery, One Artery from Left Internal Mammary, Open Approach (ICD-10-PCS; principal; 2017-08-29)
PROC: 021109W Bypass Coronary Artery, Two Arteries from Aorta with Autologous Venous Tissue, Open Approach (ICD-10-PCS; 2017-08-29)
PROC: 06BQ4ZZ Excision of Left Saphenous Vein, Percutaneous Endoscopic Approach (ICD-10-PCS; 2017-08-29)
PROC: 5A1221Z Performance of Cardiac Output, Continuous (ICD-10-PCS; 2017-08-29)
PROC: B24BZZ4 Ultrasonography of Heart with Aorta, Transesophageal (ICD-10-PCS; 2017-08-29)
DX: I25.10 Atherosclerotic heart disease of native coronary artery without angina pectoris (principal); E78.2 Mixed hyperlipidemia; I10 Essential (primary) hypertension; Z82.49 Family history of ischemic heart disease and other diseases of the circulatory system; G47.30 Sleep apnea, unspecified; F41.8 Other specified anxiety disorders; Z87.891 Personal history of nicotine dependence
CPT/HCPCS: 36416; 36430; 71045; 80048; 82805; 85025; 85610; 85730; 86850; 86900; 86901; 93005; 93010; 93798; 94002; A4216; J1265; J1642; J1644; J1815; J1885; J2001; J2250; J2270; J2405; J2440; J2704; J2720; J3010; J3475; J3480; J7050; P9045; S0017; S0028

== ENCOUNTER 2019-02-04 10:46 | Day surgery (SDC) | payer MEDICARE, OTHER ==
[2019-02-04] MEDS ORDERED: Dexamethasone 20 MG/5 ML VIAL ONE (12:20)
[2019-02-04] MEDS ORDERED: Glycopyrrolate 0.2 MG/ML 5 ML SYRINGE ONE (12:20)
[2019-02-04] MEDS ORDERED: ePHEDrine 50 MG/ML VIAL ONE (12:20)
[2019-02-04] MEDS ORDERED: Ketorolac Tromethamine 30 MG/ML VIAL ONE (12:20)
[2019-02-04] MEDS ORDERED: Lidocaine 1% PF 5 ML VIAL ONE (12:20)
[2019-02-04] MEDS ORDERED: Ondansetron PF 4 MG/2 ML Vial ONE (12:20)
[2019-02-04] MEDS ORDERED: PROPOFOL 200 MG/20 ML VIAL ONE (12:20)
[2019-02-04] MEDS ORDERED: Rocuronium Bromide 10 MG/ML (10ML VIAL) ONE (12:20)
[2019-02-04] MEDS ORDERED: Thrombin 5000 UNITS/5 ML VIAL ONE (13:29)
[2019-02-04] MEDS ORDERED: Sodium Chloride 0.9% 10 ML ONE (13:29)
[2019-02-04] MEDS ORDERED: Fentanyl 100 MCG/2 ML VIAL ONE ×2 (14:09→16:47)
[2019-02-04] MEDS ORDERED: Morphine Sulfate 2 MG/ML SYRINGE SLOW IVP PRN (15:36)
[2019-02-04] MEDS ORDERED: Promethazine HCl 25 MG/ML VIAL SLOW IVP PRN (15:36)
[2019-02-04] MEDS ORDERED: HYDROmorphone 2 MG/ML VIAL SLOW IVP PRN (15:36)
[2019-02-04] MEDS ORDERED: Promethazine HCl 25 MG/ML VIAL IM PRN (15:36)
[2019-02-04] MEDS ORDERED: Ondansetron HCl/PF 4 MG/2 ML Vial IVP PRN (15:36)
[2019-02-04] MEDS ORDERED: PACU-Morphine 4MG/ML VIAL SLOW IVP PRN (15:36)
[2019-02-04] MEDS ORDERED: Meperidine HCl/PF 25 MG/ML VIAL SLOW IVP PRN (15:36)
[2019-02-04] MEDS ORDERED: Milk Of Magnesia 30 ML UDCUP PO PRN (16:28)
[2019-02-04] MEDS ORDERED: tiZANidine HCl 4 MG TAB PO PRN (16:28)
[2019-02-04] MEDS ORDERED: Acetaminophen 325 MG TAB PO PRN (16:28)
[2019-02-04] MEDS ORDERED: HYDROcodone/Acetaminophen 7.5/325 mg Tablet PO PRN (16:28)
[2019-02-04] MEDS ORDERED: Bisacodyl 10 MG SUPP PR PRN (16:28)
[2019-02-04] MEDS ORDERED: Mag-Al 1200 mg/1200 mg/30 ML UDCUP PO PRN (16:28)
[2019-02-04] MEDS ORDERED: Fleet Enema 133 ML BOT PR PRN (16:28)
[2019-02-04] MEDS ORDERED: Promethazine HCl 25 MG/ML VIAL IM/IV PRN (16:28)
[2019-02-04] MEDS ORDERED: Acetaminophen/Codeine 30-300mg Tablet PO PRN (16:28)
[2019-02-04] MEDS ORDERED: Nystatin Powder 15 GM BOT TOP PRN (16:31)
[2019-02-04] MEDS ORDERED: Lidocaine 5% Patch TD PRN (16:31)
[2019-02-04] MEDS ORDERED: diphenhydrAMINE 25 MG CAP PO SCH (18:30)
[2019-02-04] MEDS ORDERED: Morphine 2 MG/ML SYRINGE SLOW IVP PRN (18:38)
[2019-02-04] MEDS: Metoprolol Tartrate 50 MG TAB PO SCH (21:04)
[2019-02-04] MEDS: Bupropion 150 MG XL TAB PO SCH (21:04)
[2019-02-04] MEDS: CEFAZOLIN 2 GM in Premix Bag 1 BAG IVPB SCH (21:07)
[2019-02-05] MEDS: Sodium Chloride 0.9% 1,000 ML IV SCH ×2 (01:24→06:56)
[2019-02-05] MEDS: CEFAZOLIN 2 GM in Premix Bag 1 BAG IVPB SCH (03:30)
[2019-02-05 07:48] VITALS: BP 112/68; TEMP 98.2
[2019-02-05] MEDS ORDERED: Hydrochlorothiazide 25 MG TAB PO SCH (09:00)
[2019-02-05] MEDS ORDERED: Citalopram 20 MG TAB PO SCH (09:00)
[2019-02-05] MEDS ORDERED: Famciclovir 500 MG TAB PO SCH (09:00)
[2019-02-05] MEDS ORDERED: Famotidine 20 MG TAB PO SCH (09:00)
[2019-02-05] MEDS ORDERED: Amlodipine 5 MG TAB PO SCH (09:00)
[2019-02-05] MEDS ORDERED: Doxycycline 100 MG CAP PO SCH (09:00)
[2019-02-05] MEDS ORDERED: Spironolactone 25 MG TAB PO SCH (09:00)
[2019-02-05] MEDS ORDERED: OLMESARTAN PO SCH (09:00)
[2019-02-05] MEDS ORDERED: Citalopram 10 MG TAB PO SCH (09:00)
[2019-02-05] MEDS ORDERED: HYDROCHLOROTHIAZIDE PO SCH (09:00)
[2019-02-05] MEDS: Metoprolol Tartrate 50 MG TAB PO SCH (09:17)
[2019-02-05] MEDS: Bupropion 150 MG XL TAB PO SCH (09:17)
--- NOTE | 2019-02-05 09:50 | PRG ---
DATE OF SERVICE: 02/05/2019 Ms. Faria is doing well postoperative day #1 from lumbar decompression. She has had resolution in her leg pain with good strength. She has met criteria for dismissal and will be discharged. Job ID: [id number]
--- NOTE | 2019-02-05 10:11 | OP ---
DATE OF PROCEDURE: 02/04/2019 LOCATION: OR 11. WOUND CLASSIFICATION: Type 1 wound. MANHOLE STRIPPER: Collins Quinn PA-C. PREPROCEDURE DIAGNOSIS: Lumbar stenosis with low back and leg pain. POSTPROCEDURE DIAGNOSIS: Lumbar stenosis with low back and leg pain. PROCEDURE PERFORMED: L4-L5, L5-S1 laminectomies, partial facetectomies, and foraminotomies. DESCRIPTION OF PROCEDURE: After informed consent was obtained from the patient, the patient was brought to the OR. Proper patient, pause, and identification were carried out. She was placed under excellent general endotracheal anesthesia and positioned prone on the OR table. All appropriate points were padded. We identified the L4, L5, and S1 dorsal spines. A linear samira was made over this region. This area was sterilely cleansed, prepared, and draped. Proper patient, pause, and identification were carried out. The wound was then opened with a combination of sharp, monopolar, and blunt dissection, and the L4, L5, S1 dorsal spines and lamina were exposed. Localization film confirmed our area of interest. We then performed L4, L5, and S1 laminectomies, partial facetectomies, and foraminotomies over the L4, L5, and S1 nerve roots. We had excellent decompression of the common dural tube and nerve roots. There was no spinal fluid leak. Copious irrigation occurred throughout as did maximizing hemostasis. The wound was then closed in anatomic layers following sprinkling of vancomycin powder. The patient was emerged from anesthesia. Job ID: [id number]
== END 2019-02-05 11:30 | disposition home or self-care (01) ==
LOC: SDC 10:46 → SJJU 18:45 → SDC 02-05 11:30
PROVIDERS: ATTEND Surgery
PROC: 01NB0ZZ Release Lumbar Nerve, Open Approach (ICD-10-PCS; principal; 2019-02-04)
DX: M48.061 Spinal stenosis, lumbar region without neurogenic claudication (principal); M48.07 Spinal stenosis, lumbosacral region; M54.16 Radiculopathy, lumbar region; Z88.2 Allergy status to sulfonamides; Z88.5 Allergy status to narcotic agent; Z79.82 Long term (current) use of aspirin; Z79.899 Other long term (current) drug therapy
CPT/HCPCS: 76000; 85730; 93005; 93010; J0690; J1100; J1885; J2001; J2405; J2704; J3010; J3370; J3490; J7620

== ENCOUNTER 2021-06-10 06:58 | Day surgery (SDC) | payer MEDICARE, OTHER ==
[2021-06-09 12:03] VITALS: BMI 30.2
[2021-06-10 08:17] LABS: #Basophils 0.1 thou/uL (0.0-0.2); #Eosinphils 0.3 thou/uL (0.0-0.7); #Lymphocytes 1.7 thou/uL (1.20-3.40); #Monocytes 0.8 thou/uL (0.11-0.59); #Neutrophils 3.6 thou/uL (1.40-6.50); %Basophils 1.1 % (0.0-1.0); %Eosinophils 5.1 % (0.0-10.0); %Lymphocytes 25.5 % (21.0-51.0); %Monocytes 12.5 % (0.0-10.0); %Neutrophils 55.8 % (42.0-75.0); Hemoglobin 13.7 g/dL (12.0-16.0); Mean Corpuscular HGB CONC 35.6 g/dL (32.0-36.0); Mean Corpuscular Volume 92.7 fL (78.0-98.0); Mean Platelet Volume 6.3 fL (7.4-10.4); Platelet Count 237 thou/uL (130-400); RBC Distribution Width 12.8 % (11.5-14.5); Red Blood Cell (RBC) Count 4.14 mill/uL (4.20-5.40); White Blood Cell (WBC) Count 6.5 thou/uL (4.8-10.8)
[2021-06-10 08:27] LABS: PTT 24.3 sec (22.9-36.1); Prothrombin Time 13.1 sec (12.0-14.7)
[2021-06-10 08:39] LABS: Anion Gap 15 mmol/L (10-20); BUN (Urea Nitrogen) 16 mg/dL (9.8-20.1); Calc. Creatinine Clearance 66 mL/min (70-130); Carbon Dioxide 25 mmol/L (23-31); Chloride 97 mmol/L (98-107); Cholesterol 86 mg/dl (< 200 Desired); Glucose 104 mg/dL (83-110); HDL Cholesterol 42 mg/dL (>60 Neg Risk); LDL Cholesterol, Calculated 10 mg/dL; Potassium 4.2 mmol/L (3.5-5.1); Sodium 133 mmol/L (136-145); Triglycerides 168 mg/dL (Less than 150)
[2021-06-10] MEDS ORDERED: Iopamidol 370 76% 100 ML VIAL ONE (09:07)
[2021-06-10] MEDS ORDERED: Lidocaine 1% (PF) 30 ML VIAL ONE (09:39)
[2021-06-10] MEDS ORDERED: Fentanyl 100 MCG/2 ML VIAL ONE (10:01)
[2021-06-10] MEDS ORDERED: Midazolam HCl 2 mg/2 ml Vial ONE (10:01)
[2021-06-10] MEDS ORDERED: Heparin 10,000 UNITS/ 10 ML VIAL ONE (10:31)
[2021-06-10] MEDS ORDERED: Atropine Sulfate 1 mg/10 ml Syringe ONE (10:32)
[2021-06-10] MEDS ORDERED: Nitroglycerin 100MG/250ML BOT 250 ML ONE (10:40)
[2021-06-10] MEDS ORDERED: TICAGRELOR 90 MG TABLET ONE (10:54)
== END 2021-06-10 15:50 | disposition home or self-care (01) ==
LOC: CCL 06:58
PROVIDERS: ATTEND Internal Medicine Cardiovascular Disease
PROC: 4A023N7 Measurement of Cardiac Sampling and Pressure, Left Heart, Percutaneous Approach (ICD-10-PCS; principal; 2021-06-10)
PROC: B2111ZZ Fluoroscopy of Multiple Coronary Arteries using Low Osmolar Contrast (ICD-10-PCS; 2021-06-10)
DX: I25.10 Atherosclerotic heart disease of native coronary artery without angina pectoris (principal); I10 Essential (primary) hypertension; G47.30 Sleep apnea, unspecified; I73.9 Peripheral vascular disease, unspecified; Z79.82 Long term (current) use of aspirin; Z79.899 Other long term (current) drug therapy; Z88.2 Allergy status to sulfonamides; Z95.1 Presence of aortocoronary bypass graft
CPT/HCPCS: 80048; 80061; 85025; 85347; 85610; 85730; 92928; 93005; 93459; 97139; 99152; 99153; C1769; C9600; J0461; J1644; J2001; J2250; J3010; Q9967